=== PATIENT | male | born 1980 ===

== ENCOUNTER 2017-08-10 12:42 | Emergency (ER) | payer MEDICAID, OTHER ==
[2017-08-10 12:42] VITALS: BMI 24.6
[2017-08-10 13:15] VITALS: RESP 18
[2017-08-10] MEDS ORDERED: Dexamethasone 4 mg/1 ml IM STA (14:21)
[2017-08-10] MEDS ORDERED: Dexamethasone 4 mg/1 ml ONE (14:35)
--- NOTE | 2017-08-10 15:46 | C.PDOC ---
History Of Present Illness 36 male presents to the ED for evaluation of fever and sore throat which began 1 day ago. Patient reports he has trouble swallowing due to the pain. Patient denies cough, ear pain. Time Seen by Provider: 08/10/17 13:34 Chief Complaint (Nursing): ENT Problem History Per: Patient, Family History/Exam Limitations: None Onset/Duration Of Symptoms: Hrs Current Symptoms Are (Timing): Still Present Past Medical History Reviewed: Historical Data, Nursing Documentation, Vital Signs Vital Signs: Last Vital Signs Temp 98.2 F 08/10/17 15:50 Pulse 89 08/10/17 15:50 Resp 18 08/10/17 15:50 BP 111/68 08/10/17 15:50 Pulse Ox 97 08/10/17 15:50 - Medical History PMH: No Chronic Diseases Surgical History: No Surg Hx Family History: States: Unknown Family Hx - Social History Hx Tobacco Use: Yes Hx Alcohol Use: No Hx Substance Use: No - Immunization History Hx Tetanus Toxoid Vaccination: No Hx Influenza Vaccination: No Hx Pneumococcal Vaccination: No Review Of Systems Constitutional: Positive for: Fever ENT: Positive for: Throat Pain. Negative for: Ear Pain Respiratory: Negative for: Cough Physical Exam - Physical Exam Appears: Non-toxic, No Acute Distress Skin: Normal Color, Warm, Dry Head: Atraumatic, Normacephalic Eye(s): bilateral: Normal Inspection Ear(s): Bilateral: Normal Nose: Normal, No Discharge Oral Mucosa: Moist Throat: Erythema, No Exudate, Other (tonsillar swelling ) Neck: Supple Chest: Symmetrical, No Deformity Cardiovascular: Rhythm Regular, No Murmur Respiratory: Normal Breath Sounds, No Rales, No Rhonchi, No Wheezing Neurological/Psych: Oriented x3, Normal Speech, Normal Cognition ED Course And Treatment O2 Sat by Pulse Oximetry: 96 (on RA) Pulse Ox Interpretation: Normal Progress Note: Throat culture obtained. Influenza A/B test and Rapid Strep tests ordered, both resulted negative. Amoxicillin PO, Decadron IM, and Toradol IM administered. On reassessment, patient is resting comfortably, is currently afebrile and reports an improvement in his symptoms. Patient is stable for discharge and is advised to f/u with his PMD within 1-2 days for further evaluation. Reassessment Condition: Improved Disposition - Disposition Referrals: Maddison Rodriguez MD [Medical Doctor] - Disposition: HOME/ ROUTINE Disposition Time: 15:40 Condition: STABLE Additional Instructions: Follow up with PMD within 1-2 days. Return to Ed if feel worse. Prescriptions: Amoxicillin 500 mg PO Q8 #30 tab Ibuprofen [Motrin Tab] 600 mg PO Q8 #30 tab Instructions: Pharyngitis (ED) Forms: [employer] (Japanese) - Clinical Impression Clinical Impression: Pharyngitis - PA / [employer] ADMINISTRATOR / Resident Statement MD/DO has reviewed & agrees with the documentation as recorded. - Scribe Statement The provider has reviewed the documentation as recorded by the Scribe (Bebe Goins) All medical record entries made by the Scribe were at my direction and personally dictated by me. I have reviewed the chart and agree that the record accurately reflects my personal performance of the history, physical exam, medical decision making, and the department course for this patient. I have also personally directed, reviewed, and agree with the discharge instructions and disposition.
[2017-08-10 15:51] VITALS: BP 111/68; PULSE 89; TEMP 98.2
[2017-08-10 19:58] VITALS: O2SAT 96
== END 2017-08-10 15:54 | disposition home or self-care (01) ==
LOC: C.ER 12:42
DX: J02.9 Acute pharyngitis, unspecified (principal); Z87.891 Personal history of nicotine dependence
CPT/HCPCS: 87070; 87430; 87804; 96372; 99283; J1100; J1885